=== PATIENT | female | born 1990 | race Caucasian/White ===

== ENCOUNTER 2025-02-05 20:07 | Emergency (ER) | payer OTHER ==
[2025-02-05 20:19] VITALS: BP 145/95; PULSE 130; RESP 20; TEMP 98.3; BMI 25.2
[2025-02-05] MEDS: SODIUM CHLORIDE 0.9% 500 ML INFUS.BAG IV ONE (22:02)
[2025-02-05 22:30] LABS: ABSOLUTE IMMATURE GRANULOCYTES 0.04 x10^3/uL (0.0-0.031); BASOPHILS # 0.04 x10^3/uL (0.01-0.08); EOSINOPHIL % 0.4 % (0.7-5.8); EOSINOPHILS # 0.04 x10^3/uL (0.04-0.36); HEMATOCRIT 35.5 % (34.1-44.9); HEMOGLOBIN 11.3 g/dL (11.2-15.7); MCHC 31.8 g/dl (32.2-35.5); MEAN PLT VOLUME 9.7 fl (9.4-12.3); MONOCYTE # 0.58 x10^3/uL (0.24-0.86); MONOCYTE % 5.8 % (4.7-12.5); PLATELET COUNT 270 x10^3/uL (182-369); RDW 14.3 % (12.1-16.8)
[2025-02-05 22:33] LABS: EPI CELLS 34 /uL (0-25.1); HYALINE CASTS 9 /uL (0-3.1); URINE APPEARANCE TURBID; URINE BACTERIA 1217 /uL (0-1359); URINE BILIRUBIN NEGATIVE (NEGATIVE); URINE COLOR RED; URINE GLUCOSE (UA) NEGATIVE (NEGATIVE); URINE KETONE TRACE (NEGATIVE); URINE LEUK ESTERASE 2+ (NEGATIVE); URINE NITRITE NEGATIVE (NEGATIVE); URINE PROTEIN 2+ (NEGATIVE); URINE UROBILINOGEN 0.2 mg/dL (0.2-1.0); URINE WBC 591 /uL (0-25.8)
[2025-02-05 22:46] LABS: ACTIVATED PTT 34.2 SECONDS (25.2-36.5); INR 1.16 (0.83-1.09); PROTHROMBIN TIME (PATIENT) 12.6 SEC (9.7-13.0)
[2025-02-05 22:52] LABS: POTASSIUM 3.3 mmol/L (3.5-5.1)
[2025-02-05 22:54] LABS: ALBUMIN 4.1 g/dl (3.4-5.0); BLOOD UREA NITROGEN 7.1 mg/dL (7-18); CALCIUM 9.2 mg/dL (8.5-10.1)
[2025-02-05 22:57] LABS: CREATININE 0.9 mg/dL (0.55-1.3)
[2025-02-05 22:59] LABS: BILIRUBIN,TOTAL 0.2 mg/dL (0.2-1); TOT PROT 7.6 g/dl (6.4-8.2)
[2025-02-05 23:04] LABS: URINE RBC 9028.7 /uL (0-23.9); YEAST PRESENT (NEGATIVE)
[2025-02-05] MEDS ORDERED: CEPHALEXIN MONOHYDRATE 500 MG CAPSULE (UD) ONE (23:43)
[2025-02-05] MEDS: CEPHALEXIN MONOHYDRATE 500 MG CAPSULE (UD) PO ONE (23:44)
== END 2025-02-05 23:53 | disposition home or self-care (01) ==
LOC: JER 20:07
DX: O09.511 Supervision of elderly primigravida, first trimester (principal); O20.9 Hemorrhage in early pregnancy, unspecified; O23.41 Unspecified infection of urinary tract in pregnancy, first trimester; O26.891 Other specified pregnancy related conditions, first trimester; R10.9 Unspecified abdominal pain; O99.891 Other specified diseases and conditions complicating pregnancy; R35.0 Frequency of micturition; R00.0 Tachycardia, unspecified; Z3A.01 Less than 8 weeks gestation of pregnancy
CPT/HCPCS: 36415; 76817-TC; 80053; 81003; 84702; 85025; 85610; 85730; 86850; 86900; 86901; 87086; 93005; 93010; 99285-25

== ENCOUNTER 2025-02-07 18:18 | Emergency (ER) | payer OTHER ==
[2025-02-07 18:25] VITALS: BMI 23.9
[2025-02-07 19:54] LABS: ABSOLUTE IMMATURE GRANULOCYTES 0.01 x10^3/uL (0.0-0.031); BASOPHILS # 0.05 x10^3/uL (0.01-0.08); EOSINOPHIL % 1.8 % (0.7-5.8); EOSINOPHILS # 0.12 x10^3/uL (0.04-0.36); HEMATOCRIT 36.2 % (34.1-44.9); HEMOGLOBIN 11.4 g/dL (11.2-15.7); MCHC 31.5 g/dl (32.2-35.5); MEAN CELL VOLUME 80.8 fl (79.4-94.8); MEAN PLT VOLUME 9.7 fl (9.4-12.3); MONOCYTE # 0.59 x10^3/uL (0.24-0.86); MONOCYTE % 8.9 % (4.7-12.5); PLATELET COUNT 297 x10^3/uL (182-369); RDW 14.2 % (12.1-16.8)
[2025-02-07] MEDS ORDERED: FAMOTIDINE 20 MG/50 ML IVPB 20 MG/50 ML MG IVPB ONE (19:58)
[2025-02-07] MEDS ORDERED: ONDANSETRON 4 MG/2 ML VIAL ONE (19:58)
[2025-02-07] MEDS: SODIUM CHLORIDE 0.9% 500 ML INFUS.BAG IV ONE (20:10)
[2025-02-07] MEDS: ONDANSETRON 4 MG/2 ML VIAL IVPUSH ONE (20:11)
[2025-02-07] MEDS: FAMOTIDINE 20 MG/50 ML IVPB 20 MG/50 ML MG IVPB ONE (20:11)
[2025-02-07 20:12] LABS: POTASSIUM 3.7 mmol/L (3.5-5.1)
[2025-02-07 20:14] LABS: CALCIUM 9.3 mg/dL (8.5-10.1)
[2025-02-07 20:15] LABS: BLOOD UREA NITROGEN 7.3 mg/dL (7-18)
[2025-02-07 20:18] LABS: CREATININE 0.8 mg/dL (0.55-1.3)
[2025-02-07 20:20] LABS: BILIRUBIN,TOTAL 0.2 mg/dL (0.2-1)
[2025-02-07] MEDS ORDERED: ACETAMINOPHEN INJECTION 100 ML ONE (20:27)
[2025-02-07] MEDS: ACETAMINOPHEN 1000 MG/100 ML BAG IVPB ONE (20:30)
[2025-02-07 21:22] LABS: EPI CELLS 5 /uL (0-25.1); HYALINE CASTS 0 /uL (0-3.1); URINE APPEARANCE CLEAR; URINE BACTERIA 0 /uL (0-1359); URINE BILIRUBIN NEGATIVE (NEGATIVE); URINE COLOR YELLOW; URINE GLUCOSE (UA) NEGATIVE (NEGATIVE); URINE KETONE NEGATIVE (NEGATIVE); URINE LEUK ESTERASE NEGATIVE (NEGATIVE); URINE NITRITE NEGATIVE (NEGATIVE); URINE PROTEIN NEGATIVE (NEGATIVE); URINE RBC 1820 /uL (0-23.9); URINE UROBILINOGEN 0.2 mg/dL (0.2-1.0); URINE WBC 4 /uL (0-25.8)
[2025-02-07 21:45] VITALS: BP 112/74; PULSE 75; RESP 18; TEMP 98.3
== END 2025-02-07 22:32 | disposition home or self-care (01) ==
LOC: JER 18:18
PROC: 3E033GC Introduction of Other Therapeutic Substance into Peripheral Vein, Percutaneous Approach (ICD-10-PCS; principal; 2025-02-07)
PROC: 3E033NZ Introduction of Analgesics, Hypnotics, Sedatives into Peripheral Vein, Percutaneous Approach (ICD-10-PCS; 2025-02-07)
PROC: 3E033GC Introduction of Other Therapeutic Substance into Peripheral Vein, Percutaneous Approach (ICD-10-PCS; 2025-02-07)
DX: O03.4 Incomplete spontaneous abortion without complication (principal)
CPT/HCPCS: 36415; 80053; 81003; 84702; 85025; 87086; 99283-25; J0131